=== PATIENT | male | born 1995 | race African-American/Black ===

== ENCOUNTER 2017-05-12 23:14 | Emergency (ER) | payer OTHER ==
[~2017-05-12] VITALS: Ht 167.6 cm; Wt 68.1 kg
--- NOTE | 2017-05-13 00:30 | REPUSA ---
HISTORY: Trauma. COMPARISON: None. TECHNIQUE: Multiple thin section helically-acquired axially-displayed and helically acquired coronall y displayed computed tomographic images of the face are obtained from the mandible through the fronta l sinuses, with images obtained at soft tissue and bone window. 2D reformatted images were performed. FINDINGS: Left facial soft tissue contusion. Normal bony mineralization. No fractures. Normal orbits. Normal, clear paranasal sinuses. Normal oral and nasal cavities. Normal infratemporal fossa and deep parapharyngeal spaces with normal muscles of mastication. Normal parotid and submandibular glands. IMPRESSION: Left facial soft tissue contusion. Thank you for your kind referral of this patient
--- NOTE | 2017-05-13 00:40 | REPUSA ---
CLINICAL HISTORY: Trauma. TECHNIQUE: Multiple axial CT images were obtained through the cervical spine without IV contrast mate rial. COMMENTS: There is no fracture visualized. The paraspinal soft tissues are unremarkable. There are no lytic or blastic lesions. IMPRESSION: Thank you for your kind referral of this patient.
[2017-05-13 01:50] VITALS: BP 156/80
== END 2017-05-13 02:44 | disposition home or self-care (01) ==
LOC: M ED 23:14 → EDBD 23:14 → M ED 05-13 02:44
DX: S06.0X9A Concussion with loss of consciousness of unspecified duration, initial encounter (principal); S00.83XA Contusion of other part of head, initial encounter; Y04.0XXA Assault by unarmed brawl or fight, initial encounter; Y92.149 Unspecified place in prison as the place of occurrence of the external cause; Y93.89 Activity, other specified; Y99.9 Unspecified external cause status